=== PATIENT | female | born 1960 | race Caucasian/White ===

== ENCOUNTER → 2018-05-11 | Outpatient (CLI) | payer OTHER | LOC: BMCIMAGING 09:17 | PROVIDERS: ATTEND Physician Assistant | DX: M23.41 Loose body in knee, right knee (principal); M25.461 Effusion, right knee ==

== ENCOUNTER 2018-06-29 08:02 | Observation (INO) | payer OTHER ==
--- NOTE | 2018-06-29 06:36 | PDHPUP ---
History & Physical Update H&P update statement: This history and physical update is based on an assessment of the patient which was completed after admission or registration (within 24 hours), but prior to the surgery/procedure. H&P update: no change in patient's condition since H&P completed
--- NOTE | 2018-06-29 06:37 | PDIAF ---
- Diagnosis Diagnosis: right knee djd Code Status: Full Code - Medication Management Discharge Medications: Medications to Continue on Transfer Estradiol [Estradiol 1 MG (*)] 1.5 mg PO HS 05/30/14 [Last Taken 07/06/14 23:00] Levothyroxine [Synthroid 137 mcg (*)] 137 mcg PO HS 05/30/14 [Last Taken 23:00] Cholecalciferol Vit D3 [Vitamin D3 (*)] 1,000 units PO HS 07/07/14 [Last Taken 07/06/14 23:00] Sertraline HCl [Zoloft 100mg (*)] 200 mg PO HS 07/07/14 [Last Taken 07/06/14 23: 00] Vitamin B Complex [B Complex] 1 tab PO HS 07/07/14 [Last Taken 07/06/14 23:00] Zolpidem Tartrate [Ambien 10 mg] 10 mg PO HS 07/07/14 [Last Taken 07/06/14 23:00 ] Sennosides/Psyllium Husk [Senna Prompt Capsule] 1 each PO DAILY PRN #0 capsule 07/14/14 [Last Taken Unknown] Abilify 06/14/18 [Last Taken Unknown] Advil 06/14/18 [Last Taken Unknown] Discharge Medications: Refer to the Discharge Home Medication list for PRN reason. - Orders Services needed: Physical Therapy Isolation Type: Neutropenic Isolation Diet Recommendation: no restrictions on diet Diet Texture: Regular Texture Diet Additional Instructions: TOTAL JOINT ARTHROPLASTY DISCHARGE INSTRUCTIONS 1. Your surgeon follows the [facility] protocol for reducing your risk of DVT (blood clots) following surgery. Medication will be ordered to prevent blood clots. A sudden increase in calf pain and/or swelling could indicate a blood clot in your leg. If this occurs, please call your surgeon or his/her assistant customer service manager. An ultrasound of the leg may be necessary to diagnose a blood clot. If you have conditions that make you a higher risk for blood clots, your surgeon may use more aggressive ways to prevent them. Notify your surgeon if you think you are a high risk for blood clots. 2. Wear your white surgical stockings (CINDY hose) for 2 weeks. This decreases your swelling and may help prevent blood clots. It is ok to remove CINDY hose at night time to give your legs a break. 3. Swelling and bruising in the surgical leg is common. If you feel that it is excessive, please notify your surgeon. 4. Elevate your surgical leg with the ankle above the hip several times every day. Please keep the leg straight when you elevate by putting pillows under your foot. Do not put pillows under your knee. This will make being able to fully straighten more difficult. This is uncomfortable, but try to do it as much as possible. 5. For total knee replacements use compressive wrap on your knee for 3-5 days after surgery, then you can discontinue it. 6. Use a walker or crutches for 1-2 weeks. Progress your weight-bearing as tolerated. You may start to use a cane when you feel stable and safe. 7. You will receive physical therapy instructions in the hospital. Continue those exercises at home. There are additional exercises in the total joint booklet you were given before surgery. Outpatient physical therapy will begin 7- 10 days after surgery. Please schedule this in advance. 8. Use ice on your knee at least 3-5 times every day for 30 minutes. This helps reduce pain and swelling. Also use it at night before falling asleep. 9. Leave your surgical dressing in place for 2 weeks. Your dressing is water resistant, but not waterproof. Cover it with Saran Wrap or Anrpk-m-Hhvu before showering. You may shower as soon as you feel safe entering a shower. If you notice bleeding from your incision 2 or 3 days after surgery, please notify your surgeon. 10. Due to narcotics, decreased activity and altered diet, most patients experience constipation after surgery. Use jvtv-vqm-dcqrgve stool softeners while you are on narcotics. 11. You may drive a car when you are comfortable bearing weight, have good muscular control of your leg and are off narcotics. This usually occurs 2-4 weeks after surgery, depending on which leg was operated on. 12. If there are questions not addressed here, please refer the [facility] book given for more information. If you still have questions, please contact your surgeon s office. 13. If you have a life-threatening emergency, please call 911 and go to the emergency room immediately. For non-life threatening emergencies, please call your physicians office for advice before going to the emergency room. - Follow Up Care Current Providers and Referrals: Jairo Lopez MD [Primary Care Provider] - Sal Crawford MD [Medical Doctor] -
[~2018-06-29 08:02] MED LIST: ROPIVACAINE 0.2% 80 MG, EPINEPHrine 0.2 MG, morphINE 10 MG in SYRINGE 0 ML IU ONE; TRANEXAMIC ACID 1,000 MG in NS 100 ML IV ONE
[2018-06-29] MEDS ORDERED: ACETAMINOPHEN 325 MG TAB PO ONE (08:24)
[2018-06-29] MEDS ORDERED: LIDOCAINE 1% 2 ML INJ ID PRN (08:24)
[2018-06-29] MEDS ORDERED: LR 1,000 ML IV ONE (08:24)
[2018-06-29] MEDS ORDERED: ceFAZolin 2 GM/DEXTROSE 100 ML IV ONE (08:24)
[2018-06-29] MEDS ORDERED: FAMOTIDINE 20 MG TAB PO ONE (08:24)
[2018-06-29] MEDS ORDERED: BUPIVACAINE/DEXTROSE 7.5MG/ML 2 ML SPINAL AMP SP ONE (09:45)
[2018-06-29] MEDS ORDERED: PROPOFOL 200 MG/20 ML VIAL ONE (09:45)
[2018-06-29] MEDS ORDERED: THROMBIN (BOVINE) 5,000 UNIT VIAL TP ONE (09:57)
[2018-06-29] MEDS ORDERED: CALCIUM CHLORIDE 1 GM/10 ML INJ ONE (09:58)
[2018-06-29] MEDS ORDERED: ceFAZolin 1 GM/5 ML SYR ONE (09:58)
[2018-06-29] MEDS ORDERED: MIDAZOLAM 2 MG/2 ML VIAL ONE ×2 (10:18→10:26)
[2018-06-29] MEDS ORDERED: LIDOCAINE 2% 2 ML INJ ONE (10:26)
[2018-06-29] MEDS ORDERED: NALOXONE HCL 0.4 MG/ML INJ IVP PRN (10:38)
[2018-06-29] MEDS ORDERED: LR 500 ML IV PRN (10:38)
[2018-06-29] MEDS ORDERED: fentaNYL 100 MCG/2 ML INJ IVP PRN (10:38)
[2018-06-29] MEDS ORDERED: DEXAMETHASONE 4 MG/ML VIAL IVP PRN (10:38)
[2018-06-29] MEDS ORDERED: ONDANSETRON 4 MG/2 ML VIAL IVP PRN ×2 (10:38→12:39)
[2018-06-29] MEDS ORDERED: DIAZEPAM 5 MG/ML 1 ML SYR IVP PRN (10:38)
[2018-06-29] MEDS ORDERED: ALBUTEROL 3 ML DEYVIAL IH PRN (10:38)
--- NOTE | 2018-06-29 10:38 | PDANEPAE ---
ANE Past Medical History - Cardiovascular History Hx Hypertension: No Hx Arrhythmias: No Hx Chest Pain: No Hx Coronary Artery / Peripheral Vascular Disease: No Hx CHF / Valvular Disease: No Hx Palpitations: No Cardiovascular History Comment: BP RUNS LOW - Pulmonary History Hx COPD: No Hx Asthma/Reactive Airway Disease: No Hx Recent Upper Respiratory Infection: No Hx Oxygen in Use at Home: No Hx Sleep Apnea: Yes Sleep Apnea Screening Result - Last Documented: Positive - Neurologic History Hx Cerebrovascular Accident: No Hx Seizures: No Hx Dementia: No - Endocrine History Hx Diabetes: No Endocrine History Comment: HYPOTHYROID - GRAVES DISEASE - Renal History Hx Renal Disorders: No Renal History Comment: RECURRENT KIDNEY STONES - LAST EPISODE 3 MOS AGO - Liver History Hx Hepatic Disorders: No Hepatic History Comment: MATEUSZ - Neurological & Psychiatric Hx Hx Neurological and Psychiatric Disorders: Yes Neurological / Psychiatric History Comment: ZOLOFT FOR DEPRESSION - Cancer History Hx Cancer: Yes Cancer History Comment: ANAL CANCER - Congenital Disorder History Hx Congenital Disorders: No - GI History Hx Gastrointestinal Disorders: No - Other Health History Other Health History: DVT FOLLOWING MOST SURGERIES IN PAST AND W/PICC LINE - Chronic Pain History Chronic Pain: Yes - Surgical History Prior Surgeries: CHOLECYSTECTOMY. APPENDECTOMY. HYSTERECTOMY. KNEE R SCOPE. CARPAL TUNNEL L ANE Review of Systems Review of Systems: - Exercise capacity METS (RN): 4 METS ANE Patient History - Allergies Allergies/Adverse Reactions: carbamazepine [From Tegretol] Allergy (Intermediate, Verified 05/30/14 17:44) Vomiting diclofenac sodium [From Voltaren] Allergy (Intermediate, Verified 05/30/14 17:44 ) Other-Enter Comments divalproex sodium [From Depakote] Allergy (Intermediate, Verified 05/30/14 17:44 ) Hives gabapentin [From Neurontin] Allergy (Intermediate, Verified 05/30/14 17:44) Other-Enter Comments - Home Medications Home Medications: Estradiol [Estradiol 1 MG (*)] 1.5 mg PO HS 05/30/14 [Last Taken 06/28/18] Levothyroxine [Synthroid 137 mcg (*)] 137 mcg PO HS 05/30/14 [Last Taken ] Cholecalciferol Vit D3 [Vitamin D3 (*)] 1,000 units PO HS 07/07/14 [Last Taken 06/22/18] Sertraline HCl [Zoloft 100mg (*)] 200 mg PO HS 07/07/14 [Last Taken 06/28/18] Vitamin B Complex [B Complex] 1 tab PO HS 07/07/14 [Last Taken 06/22/18] Zolpidem Tartrate [Ambien 10 mg] 10 mg PO HS 07/07/14 [Last Taken 06/28/18] Abilify 06/14/18 [Last Taken 06/28/18] Advil 06/14/18 [Last Taken 06/22/18] - NPO status NPO Since - Liquids (Date): 06/28/18 NPO Since - Liquids (Time): 21:30 NPO Since - Solids (Date): 06/28/18 NPO Since - Solids (Time): 21:30 - Smoking Hx Smoking Status: Former smoker - Family Anes Hx Family Hx Anesthesia Complications: NEG ANE Labs/Vital Signs - Vital Signs Blood Pressure: 111/69 Heart Rate: 71 Respiratory Rate: 15 O2 Sat (%): 95 Height: 172.72 cm Weight: 86.183 kg ANE Physical Exam - Airway Neck exam: FROM Mallampati Score: Class 1 Mouth exam: normal dental/mouth exam - Pulmonary Pulmonary: no respiratory distress, no rales or rhonchi, clear to auscultation - Cardiovascular Cardiovascular: regular rate and rhythym, no murmur, rub, or gallop - ASA Status ASA Status: III ANE Anesthesia Plan Anesthesia Plan: spinal Regional Anesthesia: single shot NB, adductor canal FNB
[2018-06-29] MEDS ORDERED: ROPIVACAINE HCL 150 MG/30 ML INJ ONE (10:43)
[2018-06-29] MEDS ORDERED: ePHEDrine SULFATE 25 MG/5 ML SYR ONE (11:35)
[2018-06-29] MEDS ORDERED: PROMETHAZINE HCL 25 MG/ML INJ IVP PRN (12:39)
[2018-06-29] MEDS ORDERED: diphenhydrAMINE 25 MG CAP PO PRN (12:39)
[2018-06-29] MEDS ORDERED: PROMETHAZINE HCL 25 MG SUPPR PR PRN (12:39)
[2018-06-29] MEDS ORDERED: ONDANSETRON DISINTEGRATING 4 MG TAB PO PRN (12:39)
[2018-06-29] MEDS ORDERED: DIPHENOXYLATE/ATROPINE LOMOTIL 1 TAB PO PRN (12:39)
[2018-06-29] MEDS ORDERED: TEMAZEPAM 15 MG CAP PO PRN (12:39)
[2018-06-29] MEDS ORDERED: LACTULOSE 20 GM/30 ML UDCUP PO PRN (12:39)
[2018-06-29] MEDS ORDERED: POLYETHYLENE GLYCOL 3350 17 GM PKT PO PRN (12:39)
[2018-06-29] MEDS ORDERED: BISACODYL 10 MG SUPP PR PRN (12:39)
[2018-06-29] MEDS ORDERED: MAGNESIUM HYDROXIDE 30 ML UDCUP PO PRN (12:39)
--- NOTE | 2018-06-29 12:39 | POSTOPPROG ---
Post Op Note Date of Operation: 06/29/18 Surgeon: Sal Crawford Senior Formulation Scientist: gretchen Anesthesiologist: zachary Anesthesia: Spinal Pre-op Diagnosis: right knee djd Post-op Diagnosis: same Indication: same Procedure: right tka Inf/Abcess present in the surg proc area at time of surgery?: No Depth: Deep Incisional (Fascial) EBL: 50-100
[2018-06-29] MEDS ORDERED: LR 1,000 ML IV SCH (13:00)
[2018-06-29] MEDS: TRANEXAMIC ACID 650 MG TAB PO SCH ×2 (14:25→19:46)
[2018-06-29] MEDS: oxyCODONE IR 5 MG TAB PO PRN ×4 (14:34→23:23)
[2018-06-29] MEDS: CYCLOBENZAPRINE 10 MG TAB PO PRN (16:05)
--- NOTE | 2018-06-29 16:23 | SOAPPROG ---
SOAP Progress Note Assessment/Plan: Assessment: s/p tka Plan:wbaat rom as misa pain control slight anxiety 06/29/18 16:22 Subjective: 5/10 pain no cp or sob Objective: Vital Signs Temp Pulse Resp BP Pulse Ox 36.4 C 72 16 97/54 L 95 06/29/18 15:54 06/29/18 15:54 06/29/18 15:54 06/29/18 15:54 06/29/18 15:54 06/28/18 06/29/18 06/30/18 05:59 05:59 05:59 Intake Total 850 Output Total 10 Balance 840 dressing intact intact pdf,ehl toes warm and pink neg homans kobe xrays anatomic ICD10 Worksheet Patient Problems: Problems Problem Status Onset Anal carcinoma Acute 04/23/14 Anal pain Acute Neutropenic fever Acute
[2018-06-29] MEDS: ACETAMINOPHEN 325 MG TAB PO SCH ×2 (18:21→23:23)
[2018-06-29] MEDS: ceFAZolin 2 GM/DEXTROSE 100 ML IV SCH (18:21)
--- NOTE | 2018-06-29 18:26 | POSTANESTH ---
Post Anesthetic Evaluation Cardiovascular Status: Normal, Stable, Similar to Pre-Op Cond Respiratory Status: Normal, Stable, Similar to Pre-op Cond. Level of Consciousness/Mental Status: Can Participate in Eval Pain Control: Adequate, Prn Tx Ordered Nausea/Vomiting Control: Adequate, Prn Tx Ordered Complications Possibly Related to Anesthesia: None Noted
[2018-06-29] MEDS: FAMOTIDINE 20 MG TAB PO SCH (19:45)
[2018-06-29] MEDS: SENNOSIDES/DOCUSATE SODIUM TAB PO SCH (19:45)
[2018-06-29] MEDS: ASPIRIN 325 MG TAB PO SCH (19:45)
[2018-06-30] MEDS: oxyCODONE IR 5 MG TAB PO PRN ×3 (03:01→11:56)
[2018-06-30] MEDS: ceFAZolin 2 GM/DEXTROSE 100 ML IV SCH (03:04)
[2018-06-30] MEDS: TRANEXAMIC ACID 650 MG TAB PO SCH (05:59)
[2018-06-30] MEDS: ACETAMINOPHEN 325 MG TAB PO SCH ×2 (06:01→11:55)
--- NOTE | 2018-06-30 07:53 | PDIAF ---
- Diagnosis Diagnosis: right knee djd Code Status: Full Code - Medication Management Discharge Medications: Medications to Continue on Transfer Cholecalciferol Vit D3 [Vitamin D3 (*)] 1,000 units PO HS 07/07/14 [Last Taken 06/22/18] Sertraline HCl [Zoloft 100mg (*)] 200 mg PO HS 07/07/14 [Last Taken 06/28/18] Vitamin B Complex [B Complex] 1 tab PO HS 07/07/14 [Last Taken 06/22/18] Zolpidem Tartrate [Ambien 10 mg] 10 mg PO HS 07/07/14 [Last Taken 06/28/18] ARIPiprazole [Abilify 5 mg (*)] 5 mg PO HS 06/14/18 [Last Taken 06/28/18] Cyanocobalamin/Folic AC/Vit B6 [FOLBEE TABLET] 1 each PO HS 06/29/18 [Last Taken 06/22/18] Levothyroxine [Synthroid 125 mcg (*)] 125 mcg PO HS 06/29/18 [Last Taken ] Meloxicam 15 mg PO DAILY PRN 06/29/18 [Last Taken Unknown] Aspirin [Aspirin 325 mg (*)] 325 mg PO DAILY tab 06/30/18 [Last Taken Unknown] oxyCODONE IR [Oxycodone Ir (*)] 5 - 10 mg PO Q3HRS PRN #60 tab 06/30/18 [Last Taken Unknown] Discharge Medications: Refer to the Discharge Home Medication list for PRN reason. - Orders Services needed: Physical Therapy Isolation Type: None Diet Recommendation: no restrictions on diet Diet Texture: Regular Texture Diet Additional Instructions: TOTAL JOINT ARTHROPLASTY DISCHARGE INSTRUCTIONS 1. Your surgeon follows the [facility] protocol for reducing your risk of DVT (blood clots) following surgery. Medication will be ordered to prevent blood clots. A sudden increase in calf pain and/or swelling could indicate a blood clot in your leg. If this occurs, please call your surgeon or his/her assistant signal maintainer. An ultrasound of the leg may be necessary to diagnose a blood clot. If you have conditions that make you a higher risk for blood clots, your surgeon may use more aggressive ways to prevent them. Notify your surgeon if you think you are a high risk for blood clots. 2. Wear your white surgical stockings (CINDY hose) for 2 weeks. This decreases your swelling and may help prevent blood clots. It is ok to remove CINDY hose at night time to give your legs a break. 3. Swelling and bruising in the surgical leg is common. If you feel that it is excessive, please notify your surgeon. 4. Elevate your surgical leg with the ankle above the hip several times every day. Please keep the leg straight when you elevate by putting pillows under your foot. Do not put pillows under your knee. This will make being able to fully straighten more difficult. This is uncomfortable, but try to do it as much as possible. 5. For total knee replacements use compressive wrap on your knee for 3-5 days after surgery, then you can discontinue it. 6. Use a walker or crutches for 1-2 weeks. Progress your weight-bearing as tolerated. You may start to use a cane when you feel stable and safe. 7. You will receive physical therapy instructions in the hospital. Continue those exercises at home. There are additional exercises in the total joint booklet you were given before surgery. Outpatient physical therapy will begin 7- 10 days after surgery. Please schedule this in advance. 8. Use ice on your knee at least 3-5 times every day for 30 minutes. This helps reduce pain and swelling. Also use it at night before falling asleep. 9. Leave your surgical dressing in place for 2 weeks. Your dressing is water resistant, but not waterproof. Cover it with Saran Wrap or Cbecg-b-Iomw before showering. You may shower as soon as you feel safe entering a shower. If you notice bleeding from your incision 2 or 3 days after surgery, please notify your surgeon. 10. Due to narcotics, decreased activity and altered diet, most patients experience constipation after surgery. Use cjak-uei-ejabsrh stool softeners while you are on narcotics. 11. You may drive a car when you are comfortable bearing weight, have good muscular control of your leg and are off narcotics. This usually occurs 2-4 weeks after surgery, depending on which leg was operated on. 12. If there are questions not addressed here, please refer the [facility] book given for more information. If you still have questions, please contact your surgeon s office. 13. If you have a life-threatening emergency, please call 911 and go to the emergency room immediately. For non-life threatening emergencies, please call your physicians office for advice before going to the emergency room. - Follow Up Care Current Providers and Referrals: Jairo Lopez MD [Primary Care Provider] - Sal Crawford MD [Medical Doctor] -
--- NOTE | 2018-06-30 07:54 | SOAPPROG ---
SOAP Progress Note Assessment/Plan: Assessment: s/p tka Plan:wbaat rom as misa pain control slight anxiety d/c when cleared 06/29/18 16:22 06/30/18 07:53 Subjective: no cp or sob mod pain last pm Objective: Vital Signs Temp Pulse Resp BP Pulse Ox 36.8 C 82 16 88/54 L 93 06/29/18 23:33 06/30/18 03:05 06/30/18 03:05 06/30/18 03:05 06/30/18 03:05 Laboratory Results 06/30/18 04:35 06/29/18 06/30/18 07/01/18 05:59 05:59 05:59 Intake Total 1690 Output Total 1760 Balance -70 dressing intact intact pdf,ehl toes warm and pink neg homans kobe xrays stable alignment no fx or lucency ICD10 Worksheet Patient Problems: Problems Problem Status Onset Anal carcinoma Acute 04/23/14 Anal pain Acute Neutropenic fever Acute
[2018-06-30] MEDS: ASPIRIN 325 MG TAB PO SCH (08:48)
[2018-06-30] MEDS: CYCLOBENZAPRINE 10 MG TAB PO PRN (08:48)
[2018-06-30] MEDS: FAMOTIDINE 20 MG TAB PO SCH (08:49)
[2018-06-30] MEDS: SENNOSIDES/DOCUSATE SODIUM TAB PO SCH (08:49)
[2018-06-30 12:23] VITALS: BP 109/77
--- NOTE | 2018-06-30 13:02 | PDIAF ---
- Diagnosis Diagnosis: right knee djd Code Status: Full Code - Medication Management Discharge Medications: Medications to Continue on Transfer Cholecalciferol Vit D3 [Vitamin D3 (*)] 1,000 units PO HS 07/07/14 [Last Taken 06/22/18] Sertraline HCl [Zoloft 100mg (*)] 200 mg PO HS 07/07/14 [Last Taken 06/28/18] Vitamin B Complex [B Complex] 1 tab PO HS 07/07/14 [Last Taken 06/22/18] Zolpidem Tartrate [Ambien 10 mg] 10 mg PO HS 07/07/14 [Last Taken 06/28/18] ARIPiprazole [Abilify 5 mg (*)] 5 mg PO HS 06/14/18 [Last Taken 06/28/18] Cyanocobalamin/Folic AC/Vit B6 [FOLBEE TABLET] 1 each PO HS 06/29/18 [Last Taken 06/22/18] Levothyroxine [Synthroid 125 mcg (*)] 125 mcg PO HS 06/29/18 [Last Taken ] Meloxicam 15 mg PO DAILY PRN 06/29/18 [Last Taken Unknown] Aspirin [Aspirin 325 mg (*)] 325 mg PO DAILY tab 06/30/18 [Last Taken Unknown] oxyCODONE IR [Oxycodone Ir (*)] 5 - 10 mg PO Q3HRS PRN #60 tab 06/30/18 [Last Taken Unknown] Discharge Medications: Refer to the Discharge Home Medication list for PRN reason. - Orders Services needed: Home Care, Physical Therapy Home Care Face to Face: I certify that this patient was under my care and that I had the required [id number] encounter meeting the encounter requirements on the discharge day. My findings support the fact that the patient is homebound as defined in Home Care Face to Face Continued: CMS Chapter 7 Medicare Benefits Manual 30.1.1 , The condition of the patient is such that there exists a normal inability to leave home and consequently, leaving home would require a considerable and taxing effort. Isolation Type: None Diet Recommendation: no restrictions on diet Diet Texture: Regular Texture Diet Additional Instructions: TOTAL JOINT ARTHROPLASTY DISCHARGE INSTRUCTIONS 1. Your surgeon follows the [facility] protocol for reducing your risk of DVT (blood clots) following surgery. Medication will be ordered to prevent blood clots. A sudden increase in calf pain and/or swelling could indicate a blood clot in your leg. If this occurs, please call your surgeon or his/her treasury assistant. An ultrasound of the leg may be necessary to diagnose a blood clot. If you have conditions that make you a higher risk for blood clots, your surgeon may use more aggressive ways to prevent them. Notify your surgeon if you think you are a high risk for blood clots. 2. Wear your white surgical stockings (CINDY hose) for 2 weeks. This decreases your swelling and may help prevent blood clots. It is ok to remove CINDY hose at night time to give your legs a break. 3. Swelling and bruising in the surgical leg is common. If you feel that it is excessive, please notify your surgeon. 4. Elevate your surgical leg with the ankle above the hip several times every day. Please keep the leg straight when you elevate by putting pillows under your foot. Do not put pillows under your knee. This will make being able to fully straighten more difficult. This is uncomfortable, but try to do it as much as possible. 5. For total knee replacements use compressive wrap on your knee for 3-5 days after surgery, then you can discontinue it. 6. Use a walker or crutches for 1-2 weeks. Progress your weight-bearing as tolerated. You may start to use a cane when you feel stable and safe. 7. You will receive physical therapy instructions in the hospital. Continue those exercises at home. There are additional exercises in the total joint booklet you were given before surgery. Outpatient physical therapy will begin 7- 10 days after surgery. Please schedule this in advance. 8. Use ice on your knee at least 3-5 times every day for 30 minutes. This helps reduce pain and swelling. Also use it at night before falling asleep. 9. Leave your surgical dressing in place for 2 weeks. Your dressing is water resistant, but not waterproof. Cover it with Saran Wrap or Fwjnn-j-Dyrq before showering. You may shower as soon as you feel safe entering a shower. If you notice bleeding from your incision 2 or 3 days after surgery, please notify your surgeon. 10. Due to narcotics, decreased activity and altered diet, most patients experience constipation after surgery. Use lhke-wao-ptqmbvj stool softeners while you are on narcotics. 11. You may drive a car when you are comfortable bearing weight, have good muscular control of your leg and are off narcotics. This usually occurs 2-4 weeks after surgery, depending on which leg was operated on. 12. If there are questions not addressed here, please refer the [facility] book given for more information. If you still have questions, please contact your surgeon s office. 13. If you have a life-threatening emergency, please call 911 and go to the emergency room immediately. For non-life threatening emergencies, please call your physicians office for advice before going to the emergency room. - Follow Up Care Current Providers and Referrals: Jairo Lopez MD [Primary Care Provider] - Sal Crawford MD [Medical Doctor] - (follow up typically 2 weeks. follow up per md instructions)
--- NOTE | 2018-06-30 14:24 | ASMTLACE ---
LACE Length of stay for Answers: 1 day current admission Acuity / Level of Answers: No Care: Did the patient have an inpatient admission? Social determinants Answers: Mental health diagnosis (anxiety, depression, pers onality disorders, etc.) Score: 4 Date Signed: 06/30/2018 02:23 PM Electronically Signed By:BEVERLY Carlson
--- NOTE | 2018-06-30 14:27 | ASDISCHSUM ---
Discharge Information Plan Status:Home with Home Health Medically Cleared to Leave:06/30/2018 Discharge Date:06/30/2018 01:35 PM CM D/C Disposition:Home, Routine, Self-Care ADT D/C Disposition:Home Health Service Projected Discharge Date:06/30/2018 11:00 AM Transportation at D/C:Family Discharge Delay Reason: Follow-Up Date:06/30/2018 11:00 AM Discharge Slot: Final Diagnosis: Placement Information Referral Type:*Home Health Care Services Referral ID:[id number] Provider Name:[facility] Care Address 1[address] Address 2: City:[place] Selection Factors: State:[place] Patient Contact Information Contact Name:GABRIELCARLOS Relationship: Address:[address] City:[place] Alternate Phone: State/Zip Code:[place] [address] Email: Financial Information Financial Class:HMO and PPO Plans Primary Plan Desc:[facility] Primary Plan Number:[id number] Secondary Plan Desc: Secondary Plan Number: Assessment Information LACE LACE Length of stay for Answers: 1 day current admission Acuity / Level of Answers: No Care: Did the patient have an inpatient admission? Social determinants Answers: Mental health diagnosis (anxiety, depression, pers onality disorders, etc.) Score: 4 Date Signed: 06/30/2018 02:23 PM Electronically Signed By:BEVERLY Carlson Case Management Discharge Plan Note Case Management Discharge Discharge Order Complete? Answers: Yes Patient to Obtain Answers: via Family Medications Transportation Arranged Answers: Family/Friends Discharge Comments Notes: Pt is s/p R TKA. PT/OT recommending home care. Discussed with pt and [facility] chosen. Notified [facility] and sent referral with D/C order, meds via [employer]. Date Signed: 06/30/2018 02:26 PM Electronically Signed By:BEVERLY Carlson Intervention Information Intervention Type:*Incorrect Registration Date of Service:06/29/2018 02:37 PM Patient Type:Inpatient Staff Member:TIGIST Keen, Deepti Hours: Discipline: Severity: Comment:
--- NOTE | 2018-07-03 06:30 | GDS ---
DOMESTIC LAUNDRY WORKER: Yeyo Hyatt, surgical scrub tech who was a medical necessity for the entirety of the case. PREOPERATIVE DIAGNOSIS: Right knee degenerative joint disease. DISCHARGE DIAGNOSIS: Right knee degenerative joint disease. PROCEDURE: Right total knee arthroplasty. HISTORY OF PRESENT ILLNESS: Deepti Latif is a 58-year-old woman with end-stage arthritis to her right knee. She has failed attempts at conservative management. I have recommended total knee repla cement. She understood the risks, benefits, alternatives, and wished to proceed. Written consent wa s signed and placed in the patient's chart. HOSPITAL COURSE: The patient was admitted to the hospital floor after uncomplicated total knee arthr oplasty. She tolerated this procedure well. Overnight she had no additional complications. At the time of discharge, she is tolerating an oral diet. Pain was well controlled on oral medicines. She is voiding without difficulty. Dressing is clean, dry, intact. Negative Homans bilaterally and x-ra ys are stable with anatomic alignment. DISCHARGE ACTIVITY: Weightbearing as tolerated. Range of motion as tolerated. Keep dressing clean, dry, and intact. Seek attention for increasing redness, swelling, drainage at discharge. FOLLOWUP: In 2 weeks. DISCHARGE MEDICATIONS: Oxycodone 5 mg 1-2 every 6 hours p.r.n. pain, aspirin 325 mg p.o. daily. /[id number]/MODL
--- NOTE | 2018-07-03 06:35 | GOP ---
DATE OF OPERATION: 06/29/2018 SURGEON: Sal Crawford MD RED LEADER: Yeyo Molina. rehab assistant was medical necessity for the entirety of the case. PREOPERATIVE DIAGNOSIS: Right knee degenerative joint disease. POSTOPERATIVE DIAGNOSIS: Right knee degenerative joint disease. PROCEDURE PERFORMED: Right total knee arthroplasty. FINDINGS: SPECIMENS: To Pathology the bony cuts. INDICATIONS: Deepti Latif is a 58-year-old woman with end-stage arthritis to her right knee. Cl inical and radiographic features are consistent with this. She has failed conservative measures. Bre guevara presents for elective total knee arthroplasty. DESCRIPTION OF PROCEDURE: The patient was identified in the preanesthesia area. The right knee abrahan rly demarcated as the operative site with indelible marker. She was given 2 g of Ancef intravenously en route to the operative suite. In the OR, general endotracheal anesthesia was administered. Atte ntion was turned to the right knee which was sterilely prepped and draped in the usual fashion. Spin al anesthetic had been placed. Attention was turned to the right knee which was sterilely prepped an d draped in the usual fashion. A tourniquet was applied to the upper thigh. The limb was then steri cora prepped and draped in the usual fashion. Appropriate time-out procedure was carried out. An an terior midline incision was made. Thick subcutaneous flaps were elevated followed by medial parapate llar arthrotomy. Subperiosteal elevation was carried out to the mid coronal plane. Retractors place d protecting the collateral ligament structures. There was tricompartmental arthritis. Decision was made to proceed. Two pins were then placed from medial to lateral across the distal femur and the fe moral reference array affixed. The femoral check point was placed. A mid tibia incision was made an d 2 pins were then placed for the tibial reference array and a tibial check point was placed. The [place] landmarks were then entered into the computer in standard fashion. The knee was balanced to the f lexion-extension arc. Using the MAKOplasty robot protocol, resections were made for a size 5 femur, size 4 tibia, and ultimately a 4 x 9 mm polyethylene spacer was placed. This allowed full extension of the knee, flexion to 130 degrees without instability through the flexion-extension arc. The trial components were withdrawn. The bony surfaces were cleansed and the tibia and femoral components wer e press-fit into position. A 4 x 9 mm polyethylene spacer was placed, confirmed to be fully seated. The knee was taken through range of motion and was stable and appropriately balanced as above. The patella was then everted, cut in a freehand cutting technique. Drill holes were made for a size 29 m m patella and a press-fit patella placed. The knee cap tracked centrally through the trochlear groov e with flexion and extension across the knee. The wound was copiously irrigated with pulsatile lavag e. The capsule instilled with a joint cocktail of ropivacaine, morphine, Toradol, and epinephrine. The medial parapatellar arthrotomy closed using #1 Ethibond. The knee instilled with platelet-rich p lasma. Subcutaneous tissue closed using 2-0 Monocryl and a zip line closure placed. The patient was sterilely prepped and draped in the usual fashion. Awakened, taken to the recovery room in good, st able condition. TOTAL TOURNIQUET TIME: 50 minutes. COMPLICATIONS: None. IMPLANTS: The Atkins Triathlon posterior stabilized femoral component size 5, size 4 tibial compone nt, 4 x 9 mm tibial bearing insert, and a 29 mm asymmetric patella. DISPOSITION: To the recovery room, then the floor. She is weightbearing. Range of motion as ashlee leon. /[id number]/MODL
== END 2018-06-30 13:35 | disposition home health service (06) ==
LOC: INTOOBSV 08:02 → F3N 08:02
PROVIDERS: ADMIT Orthopaedic Surgery; ATTEND Orthopaedic Surgery
PROC: 0SRC0JZ Replacement of Right Knee Joint with Synthetic Substitute, Open Approach (ICD-10-PCS; principal; 2018-06-29 11:00)
DX: M17.11 Unilateral primary osteoarthritis, right knee (principal); E03.9 Hypothyroidism, unspecified
CPT/HCPCS: 27447; 73560; 97110; 97116; 97161; 97165; 97530; G0378; J0171; J0690; J2250; J2270; J2704; J2795

== ENCOUNTER → 2018-08-07 | Outpatient (CLI) | payer OTHER | LOC: BMCIMAGING 10:18 | PROVIDERS: ATTEND Physician Assistant | DX: Z47.1 Aftercare following joint replacement surgery (principal); Z96.651 Presence of right artificial knee joint ==